=== PATIENT | male | born 1995 | race Asian ===

== ENCOUNTER 2017-10-16 17:46 | Inpatient (IN) | payer OTHER ==
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
[2017-10-16] MEDS ORDERED: SUCCINYLCHOLINE CHLORIDE 200 MG/10 ML SYR IVP ONE ×2 (17:57→18:08)
[2017-10-16] MEDS ORDERED: levETIRAcetam 1000MG/NACL 100 ML IV ONE (17:57)
[2017-10-16] MEDS ORDERED: ETOMIDATE 40 MG/20 ML INJ IVP ONE (17:57)
[2017-10-16] MEDS ORDERED: PROPOFOL/EMULSION 100 ML IV SCH ×2 (18:00→19:00)
[2017-10-16] MEDS ORDERED: PROPOFOL 200 MG/20 ML VIAL IVP ONE (18:06)
[2017-10-16] MEDS ORDERED: THROMBIN (BOVINE) 20,000 UNIT VIAL TP ONE (18:07)
[2017-10-16] MEDS ORDERED: BUPIVACAINE 0.25% 30 ML SDV ONE (18:08)
[2017-10-16] MEDS ORDERED: GENTAMICIN SULFATE 80 MG/2 ML VIAL ONE (18:08)
[2017-10-16] MEDS ORDERED: AVITENE POWDER 1 GM JAR TP ONE (18:08)
[2017-10-16] MEDS ORDERED: MANNITOL 20% 100 GM/500 ML BAG IV ONE (18:08)
[2017-10-16 18:23] LABS: INR 1.22 (0.83-1.16); PLATELET COUNT 353 10^3/uL (150-400); PROTIME(PATIENT) 15.6 SEC (12.0-15.0)
[2017-10-16] MEDS ORDERED: fentaNYL 100 MCG/2 ML INJ IVP ONE ×2 (18:39→19:30)
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
[2017-10-16] MEDS ORDERED: ONDANSETRON 4 MG/2 ML VIAL IVP PRN (18:57)
[2017-10-16] MEDS ORDERED: NALOXONE HCL 0.4 MG/ML INJ IVP PRN (18:57)
[2017-10-16] MEDS ORDERED: fentaNYL/NACL 100 ML IV SCH (19:00)
[2017-10-16] MEDS ORDERED: VECURONIUM BROMIDE 10 MG VIAL IV ONE (19:16)
[2017-10-16] MEDS ORDERED: VECURONIUM BROMIDE 10 MG VIAL ONE (19:17)
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
[2017-10-16] MEDS ORDERED: fentanYL/NACL/100 ML BAG IV ONE (20:16)
[2017-10-16] MEDS ORDERED: FAMOTIDINE 20 MG/NACL 50 ML IV SCH (21:00)
[2017-10-16] MEDS ORDERED: levETIRAcetam 500MG/NACL 100 ML IV SCH (21:00)
[2017-10-16] MEDS ORDERED: NS W/ 20 KCl/L 1,000 ML IV SCH (21:00)
[2017-10-16] MEDS: DEXMEDETOMIDINE IN 0.9 % NACL 50 ML IV SCH ×2 (21:15→23:33)
[2017-10-16] MEDS: CHLORHEXIDINE GLUCONATE 15 ML UDL PO SCH (22:20)
[2017-10-17] MEDS ORDERED: CYCLOBENZAPRINE 10 MG TAB PO PRN (08:08)
[2017-10-17] MEDS ORDERED: KETOROLAC 30 MG/1 ML SDV IVP PRN (08:08)
[2017-10-17] MEDS ORDERED: HYDROmorphONE/DILAUDID 2 MG TAB PO PRN (08:09)
--- NOTE | 2017-10-17 08:24 | TRAUMAPN ---
Assessment/Plan: PAD#1 Tertiary survey: Patient now awake and interactive. He was extubated at 5 AM. Additional history: NKDA, No Meds. 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 Recession/resection right eye muscle to correct. No drinking or tobacco use. Smoke bothers him, lives in [facility], studying Computer science ( Masters) at [employer], GCS 15 Cerebellar fcn intact to finger nose, heal hidalgo testing No focal or lateralizing findings CN intact No complaints except right clavicle and villarreal Assessment: Doing quite well. Had a concussion with a brief LOC, now recovered. Neck cleared. CXR clear. Plan: Will continue to work on pulmonary toilet/pain control Dr. Bhat to assess clavicle. Will dc Villarreal Will ambulate will DC keppra will DC c-collar Subjective: C/o right clavicle pain and villarreal discomfort Objective: Vital Signs Temp Pulse Resp BP Pulse Ox 38.4 C H 104 H 13 123/75 H 100 10/17/17 06:00 10/17/17 06:00 10/17/17 06:00 10/17/17 06:00 10/17/17 06:00 10/16/17 10/17/17 10/18/17 05:59 05:59 05:59 Intake Total 2874 Output Total 1650 Balance 1224 PT 15.6 SEC (12.0-15.0) H 10/16/17 17:52 INR 1.22 (0.83-1.16) H 10/16/17 17:52 - C-Spine Clearance Cervical Spine Cleared: Yes Provider who Cleared Cervical Spine: Bessy Time Cervical Spine was Cleared: 08:15 Physical Exam - Physical Exam General Appearance: WD/WN, alert, mild distress EENT: other (contusion - small, high right frontal in hair line) Neck: non-tender, full range of motion, supple, normal inspection Respiratory: lungs clear, normal breath sounds, other (tender over right anterior latereral chest) Cardiac/Chest: regular rate, rhythm Abdomen: normal bowel sounds, non-tender, soft Male Genitalia: deferred Rectal: deferred Back: Normal inspection Skin: normal color, warm/dry Extremities: normal range of motion, non-tender, normal inspection, other (no tenting over right clavicle) Neuro/Psych: no motor/sensory deficits, alert, normal mood/affect, oriented x 3 Time Spent w/Patient (minutes): 45
[2017-10-17] MEDS ORDERED: ONDANSETRON 4 MG/2 ML VIAL ONE (08:50)
[2017-10-17] MEDS ORDERED: ENOXAPARIN 40 MG/0.4 ML SYR SC SCH (09:00)
[2017-10-17] MEDS ORDERED: ONDANSETRON 4 MG/2 ML VIAL IVP ONE (09:00)
[2017-10-17] MEDS: CHLORHEXIDINE GLUCONATE 15 ML UDL PO SCH (09:17)
[2017-10-17] MEDS: LIDOCAINE 5% 1 EA PATCH TD SCH (09:48)
[2017-10-17] MEDS ORDERED: ONDANSETRON DISINTEGRATING 4 MG TAB PO PRN (13:02)
--- NOTE | 2017-10-17 13:43 | ASMTCMCOM ---
CM Note CM Note Notes: Met w pt, friend and [employer] international student parveen Harris. Pt parents are arriving from [facility] tomorrow at 13:30 and should be at the hospital by 15:00. Pt friend will email a letter [facility] has provided to parents in case they need it to enter the country. OT rec home vs. inpat rehab vs. outpatient rehab. PT/LEAD SECTION SUPERVISOR evals pending. ICU staff informed pt he would be d/c likely tomorrow and pt would like to wait for parents to arrive to [facility] before leaving. CM to follow. Date Signed: 10/17/2017 01:42 PM Electronically Signed By:KVNG Angel
[2017-10-17] MEDS: ACETAMINOPHEN 500 MG TAB PO SCH ×2 (14:11→22:04)
[2017-10-17 15:22] VITALS: RESP 16
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
[2017-10-17] MEDS ORDERED: PATCH REMOVAL 1 EA PATCH TD SCH (21:00)
[2017-10-18] MEDS: ACETAMINOPHEN 500 MG TAB PO SCH ×2 (05:54→14:02)
[2017-10-18] MEDS: LIDOCAINE 5% 1 EA PATCH TD SCH (09:19)
--- NOTE | 2017-10-18 10:32 | TRAUMAPN ---
Assessment/Plan: PAD#1 Tertiary survey: Patient now awake and interactive. He was extubated at 5 AM. Additional history: NKDA, No Meds. 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 Recession/resection right eye muscle to correct. No drinking or tobacco use. Smoke bothers him, lives in [facility], studying Computer science ( Masters) at [employer], GCS 15 Cerebellar fcn intact to finger nose, heal hidalgo testing No focal or lateralizing findings CN intact No complaints except right clavicle and villarreal Assessment: Doing quite well. Had a concussion with a brief LOC, now recovered. Neck cleared. CXR clear. Plan: Will continue to work on pulmonary toilet/pain control Dr. Bhat to assess clavicle. Will dc Villarreal Will ambulate will DC keppra will DC c-collar PAD#2 10/18/2017 Assessment: Doing well. Complains of pain in right humerus (negative on xrays) due to contusion. Dr. Bhat's consult appreciated Plan: Discharge today when parents arrive from [facility]. Subjective: c/o pain in lateral upper arm Objective: Vital Signs Temp Pulse Resp BP Pulse Ox 36.7 C 92 16 120/77 99 10/18/17 08:11 10/18/17 08:11 10/18/17 08:11 10/18/17 08:11 10/18/17 08:11 10/17/17 10/18/17 10/19/17 05:59 05:59 05:59 Intake Total 2874 490 Output Total 1650 1450 Balance 1224 -960 PT 15.6 SEC (12.0-15.0) H 10/16/17 17:52 INR 1.22 (0.83-1.16) H 10/16/17 17:52 - C-Spine Clearance Cervical Spine Cleared: Yes Provider who Cleared Cervical Spine: [place] Time Cervical Spine was Cleared: 08:15 Physical Exam - Physical Exam General Appearance: WD/WN, alert, no apparent distress EENT: PERRL/EOMI, normal ENT inspection, pharynx normal, TMs normal Neck: non-tender, full range of motion, supple, normal inspection Cardiac/Chest: regular rate, rhythm Abdomen: normal bowel sounds, non-tender, soft Male Genitalia: deferred Rectal: deferred Skin: normal color, warm/dry Extremities: other (tender in lateral aspect of right upper arm) Neuro/Psych: no motor/sensory deficits, alert, normal mood/affect, oriented x 3 Time Spent w/Patient (minutes): 25
--- NOTE | 2017-10-18 10:34 | ASMTLACE ---
CHERYLE Length of stay for Answers: 2 days current admission Acuity / Level of Answers: Yes Care: Did the patient have an inpatient admission? # of Emergency department Answers: 1-2 visits in the last 6 months Score: 6 Date Signed: 10/18/2017 10:34 AM Electronically Signed By:Aranza Watson RN
--- NOTE | 2017-10-18 10:36 | ASMTCMCOM ---
CM Note CM Note Notes: Patient is medically cleard for discharge to home Independent with good support, no needs identified. CM available should needs arise. Date Signed: 10/18/2017 10:35 AM Electronically Signed By:Aranza Watson RN
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
[2017-10-18 15:57] VITALS: BP 140/77; PULSE 98; TEMP 98.2; O2SAT 100
== END 2017-10-18 18:17 | disposition home or self-care (01) | DRG 89 ==
LOC: EDBD 17:46 → F2N 20:09 → F3N 10-17 12:00
PROVIDERS: ADMIT Surgery; ATTEND Surgery
PROC: 0BH17EZ Insertion of Endotracheal Airway into Trachea, Via Natural or Artificial Opening (ICD-10-PCS; principal; 2017-10-16)
PROC: 5A1935Z Respiratory Ventilation, Less than 24 Consecutive Hours (ICD-10-PCS; 2017-10-16)
DX: S06.0X9A Concussion with loss of consciousness of unspecified duration, initial encounter (principal); S42.021A Displaced fracture of shaft of right clavicle, initial encounter for closed fracture; S22.41XA Multiple fractures of ribs, right side, initial encounter for closed fracture; R56.9 Unspecified convulsions; R91.1 Solitary pulmonary nodule; R40.2432 Glasgow coma scale score 3-8, at arrival to emergency department; V09.09XA Pedestrian injured in nontraffic accident involving other motor vehicles, initial encounter; Y92.414 Local residential or business street as the place of occurrence of the external cause
CPT/HCPCS: 80305; 82947-QW; 92523-GN; 96365; 97112-GP; 97116-GP; 97162-GP; 97166-GO; 97535-GO; G0480; J0171; J0330; J1580; J1885; J1953; J2405; J3010